=== PATIENT | male | born 1985 | race African-American/Black ===

== ENCOUNTER 2020-05-14 09:15 | Emergency (ER) | payer SELFPAY ==
[~2020-05-14] VITALS: Ht 182.9 cm; Wt 112.0 kg
[2020-05-14 09:24] VITALS: BP 136/76
[2020-05-14] MEDS ORDERED: MINERAL OIL/PETROL OINT 396 GM JAR TP STA (09:37)
[2020-05-14] MEDS ORDERED: MINERAL OIL/PETROLATUM,WHITE 120 GM JAR TP STA (09:52)
[2020-05-14] MEDS ORDERED: MINERAL OIL/PETROLATUM,WHITE 454 GM JAR TP ONE (10:00)
--- NOTE | 2020-05-14 10:02 | NUR ---
Patient discharged to home in stable condition. Written and verbal after care instructions given. Patient verbalizes understanding of instruction.
== END 2020-05-14 10:02 | disposition home or self-care (01) ==
LOC: ER 09:15
DX: L20.9 Atopic dermatitis, unspecified (principal); Z98.890 Other specified postprocedural states